=== PATIENT | male | born 1950 | race Caucasian/White ===

== ENCOUNTER 2019-10-25 10:15 | Day surgery (SDC) | payer MEDICARE, BC, OTHER ==
[2019-10-25] VITALS (13 sets, daily range): BP systolic 130–168; BP diastolic 69–81; PULSE 58–74; TEMP 97.6
[~2019-10-25] VITALS: Ht 185.5 cm; Wt 99.2 kg
[~2019-10-25 10:15] MED LIST: ALEVE 220MG220 MG PO; CARDI-OMEGA1000 MG PO; DUO-KAPS1 CAP PO; ECHINACEA ROOT400 MG PO; EXCEDRIN1 TAB PO; FLAGYL500 MG PO; LEVAQUIN 750MG750 M1 PO; NORCO 325 MG-51 TAB PO; PROBIOTIC FORMU1 CAP PO; VITAMIN C500 MG PO; [UNRECOGNIZED DRUG - OTHER] PO; [UNRECOGNIZED DRUG - OTHER] PO
[2019-10-25] MEDS ORDERED: PRIL40 PO (11:04)
[2019-10-25] MEDS ORDERED: NITROSTAT0.4 MG/TAB SL (11:05)
[2019-10-25] MEDS ORDERED: INNER DEFENSE (11:06)
[2019-10-25] MEDS ORDERED: LIFE (11:07)
[2019-10-25] MEDS ORDERED: ORTHOMEGA (11:07)
[2019-10-25] MEDS ORDERED: [UNRECOGNIZED DRUG - OTHER] (11:08)
[2019-10-25] MEDS ORDERED: JOINT SUPPORT (11:09)
[2019-10-25] MEDS ORDERED: SUPER C (11:10)
[2019-10-25] MEDS ORDERED: ECHINACEA 5001 EACH (11:10)
[2019-10-25] MEDS ORDERED: FERRO-TIME325 MG PO (11:11)
[2019-10-25] MEDS ORDERED: IMMUPLEX (11:11)
[2019-10-25] MEDS ORDERED: [UNRECOGNIZED DRUG - OTHER] (11:13)
[2019-10-25] MEDS ORDERED: [UNRECOGNIZED DRUG - OTHER] (11:14)
[2019-10-25] MEDS ORDERED: CBD OIL (11:14)
[2019-10-25 11:21] LABS: CALCIUM 9.6 mg/dL (8.4-10.2); CREATININE, serum 0.86 (0.66-1.25); POTASSIUM 4.7 mmol/L (3.4-5.0)
[2019-10-25 11:22] LABS: HEMATOCRIT 40.5 % (42.0-52.0); HEMOGLOBIN 12.8 g/dl (13.5-18.0); MEAN CELL VOLUME 84 fl (80.0-100.0); MEAN CORPUSCULAR HEMOGLOBIN 26 pg (27.0-31.0); MEAN CORPUSCULAR HGB CONC 32 g/dl (33.0-37.0); MEAN PLATELET VOLUME 10.8 fl (7.4-10.4); PLATELET COUNT 233 K/mm3 (130-400); RED BLOOD COUNT 4.84 M/mm3 (4.20-5.60); REDCELL DISTRIBUTION WIDTH-CV 14.4 % (11.5-14.5)
[2019-10-25 11:30] LABS: INR 0.9 (0.8-3.0); PROTHROMBIN TIME 10.7 SECONDS (9.7-12.8)
--- NOTE | 2019-10-25 14:20 | NUR ---
SEE MERGE FOR MEDICATION ADMINISTRATION TIMES AND INTRA AND POST SEDATION ASSESSMENTS.
--- NOTE | 2019-10-25 15:15 | NUR ---
PT RECIEVED FROM SUPERVISOR BILLPOSTING VIA BED TO ROOM EU 12, PT IS ALERT AND ORIENATED X3, NO C/O PAIN, TR BAND TO RIGHT WRIST IN PLACE. CALL LIGHT IN REACH, PT TAKES SNACK, WATCHES TV, IN ROOM
--- NOTE | 2019-10-25 16:23 | NUR ---
Report received from Angelo Atkins.
--- NOTE | 2019-10-25 16:27 | NUR ---
NO CHANGES OR C/O, REPORT TO MOMO HERNANDEZ TO ASSUME CARE. DR PAINTING CALLED FOR DISCHARGE ORDERS/ACTIVITY AT THIS TIME.
--- NOTE | 2019-10-25 17:36 | NUR ---
Attempted to removed 2 cc of air from radial band.Bleeding observed at site.Reinstilled 2 ml of air back into radial band.Band should have 12 cc of air inside cuff.
--- NOTE | 2019-10-25 17:48 | NUR ---
Discharge instructions provided to patient.Patient verbalizes understanding.Instructed pt we will wait one hour before attempting to remove air from band again.
--- NOTE | 2019-10-25 18:47 | NUR ---
Report to Angelo White.
--- NOTE | 2019-10-25 21:19 | NUR ---
PT INSTRUCTED THAT HE CAN GET DRESSED. IV OUT. DENIES ANY CP OR DIZZINESS UPON STANDING. PT AMBUALTED. ALL BELONGINGS SENT WITH PT. SPOUSE ACCOMPANYING PT. ARM SPLINT LEFT IN PLACE TO HELP REMIND PT TO NOT STRAIN RT WRIST AT THIS TIME.
== END 2019-10-25 21:19 | disposition home or self-care (01) ==
LOC: COL.CAR 10:15
PROVIDERS: Internal Medicine Interventional Cardiology
DX: I20.9 Angina pectoris, unspecified (principal); R94.39 Abnormal result of other cardiovascular function study; E78.5 Hyperlipidemia, unspecified; I10 Essential (primary) hypertension; Z87.11 Personal history of peptic ulcer disease; Z82.5 Family history of asthma and other chronic lower respiratory diseases; Z87.891 Personal history of nicotine dependence
CPT/HCPCS: J1644; J2250; J3010; Q9967

== ENCOUNTER 2022-11-11 09:55 | Day surgery (SDC) | payer MEDICARE, BC, OTHER ==
[~2022-11-11] VITALS: Ht 185.4 cm; Wt 90.4 kg
[~2022-11-11 09:55] MED LIST changes: +CBD OIL; +ECHINACEA 5001 EACH; +FERRO-TIME325 MG PO; +IMMUPLEX; +INNER DEFENSE; +JOINT SUPPORT; +LIFE; +NITROSTAT0.4 MG/TAB SL; +ORTHOMEGA; +PRIL40 PO; +SUPER C; +[UNRECOGNIZED DRUG - OTHER]; +[UNRECOGNIZED DRUG - OTHER]; +[UNRECOGNIZED DRUG - OTHER]
[2022-11-11 10:13] VITALS: BP 156/82; PULSE 63; TEMP 97.6
[2022-11-11 10:13] LABS: BASO # 0.1 K/mm3 (0.0-0.2); BASO % 1.2 % (0.0-2.0); EOS # 0.1 K/mm3 (0.0-0.7); GRAN # 4.1 K/mm3 (1.4-6.5); GRAN % 70.1 % (42.2-75.2); HEMATOCRIT 46.2 % (42.0-52.0); LYMPH # 1.2 K/mm3 (1.2-3.4); LYMPH % 20.4 % (20.0-51.0); MEAN CELL VOLUME 85 fl (80.0-100.0); MEAN CORPUSCULAR HEMOGLOBIN 29 pg (27-31); MEAN CORPUSCULAR HGB CONC 35 g/dl (33.0-37.0); MONO # 0.4 K/mm3 (0.1-0.6); PLATELET COUNT 211 K/mm3 (130-400); RED BLOOD COUNT 5.46 M/mm3 (4.20-5.60); REDCELL DISTRIBUTION WIDTH-CV 13.3 % (11.5-14.5)
[2022-11-11 10:23] LABS: PROTHROMBIN TIME 11.9 SECONDS (9.7-12.8)
[2022-11-11 10:26] LABS: PARTIAL THROMBOPLASTIN TIME 36.4 SECONDS (26.0-37.0)
[2022-11-11 10:28] LABS: CALCIUM 9.9 mg/dL (8.4-10.2); CREATININE, serum 0.89 mg/dL (0.72-1.25); POTASSIUM 4.4 mmol/L (3.5-4.5)
[2022-11-11] MEDS ORDERED: NORVASC2.5 MG PO (10:37)
[2022-11-11] MEDS ORDERED: CALCIUM 600MG+D1 TAB PO (10:38)
[2022-11-11] MEDS ORDERED: ASPIRIN E.C. 8181 MG PO (10:38)
[2022-11-11] MEDS ORDERED: PRILOSEC 20MG20 MG PO (10:39)
[2022-11-11] MEDS ORDERED: CENTRUM CHEWAB1 EAC4 PO (10:40)
[2022-11-11] MEDS ORDERED: PROBIOTIC-MAJOR PO (10:40)
[2022-11-11] MEDS ORDERED: FISH OIL1000 MG PO (10:42)
[2022-11-11] MEDS ORDERED: VITAMIN C500 MG PO (10:42)
[2022-11-11 11:16] LABS: TROPONIN-I 0.055 ng/mL (0.00-0.033)
[2022-11-11 12:15] VITALS: BP 164/81; PULSE 69
[2022-11-11] MEDS ORDERED: TOPROL XL 25MG25 MG PO (12:23)
[2022-11-11] MEDS ORDERED: PLAVIX 75MG TAB75 MG PO (12:24)
[2022-11-11] MEDS ORDERED: LIPITOR 80MG80 MG PO (12:24)
--- NOTE | 2022-11-11 12:24 | NUR ---
Pt has remained free of chest pain or other sx during his stay with [facility] in [facility]. Jim SAM has been in to discuss poc with pt and plan is for pt to go home today and reschedule for next week some time. Monitoring dc'd and iv's taken out. Pt getting dressed at this time. will review dc/fu when instructions are available to print.
[2022-11-11] MEDS ORDERED: PROTONIX20 MG PO (12:25)
--- NOTE | 2022-11-11 12:40 | NUR ---
i REVIEWED DC/RX AND FU INSTRUCTIONS WITH PT AND HIS , BOTH VERBALIZED UNDERSTANDING. PT ALLOWED ME TO ESCORT HIM TO EXIT VIA WHEELCHAIR AT THIS TIME.
== END 2022-11-11 12:51 | disposition home or self-care (01) ==
LOC: EUO 09:55 → SURG 15:53 → EDSTATUS 16:51
PROVIDERS: Internal Medicine Interventional Cardiology; Nurse Practitioner
DX: M54.9 Dorsalgia, unspecified (principal); I10 Essential (primary) hypertension; Z87.891 Personal history of nicotine dependence; Z28.310 Unvaccinated for COVID-19; Z79.82 Long term (current) use of aspirin